=== PATIENT | female | born 1965 | race American Indian/Alaskan Native ===

== ENCOUNTER 2021-07-11 10:41 | Outpatient (CLI) | payer MEDICARE ==
--- NOTE | 2021-07-11 11:51 | Electrocardiograph Report ---
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
== END 2021-07-11 10:42 | disposition home or self-care (01) ==
LOC: CARD 10:41
PROVIDERS: ATTEND Internal Medicine
DX: I10 Essential (primary) hypertension (principal); R07.9 Chest pain, unspecified
CPT/HCPCS: 93005